=== PATIENT | female | born 1965 | race Caucasian/White ===

== ENCOUNTER → 2017-05-11 | Outpatient (CLI) | payer OTHER ==
[~2017-05-11] VITALS: Ht 160 cm; Wt 74.5 kg
[~2017-05-11] MED LIST: CHLORHEXIDINE GLUCONATE 2 % 1 PACK (2 CLOTHS) TOPICAL PRN; INSULIN HUMAN REGULAR 1,000 UNITS/10 ML VIAL SQ PRN; LACTATED RINGER'S 1000 ML IV PRN; LIDOCAINE HCL 1% PF 5 ML SYRINGE OTHER ONE; METOPROLOL TARTRATE 25 MG TAB PO PRN; NAPR250T4 PO; POVIDONE IODINE 5% (ANTISEPSIS KIT) 4 APPLICATIONS EACH NARE PRN; PROPOFOL 200 MG/20 ML AMP IV ONE; SODIUM CHLORID 0.9% 500 ML IV PRN
--- NOTE | 2017-05-11 12:47 | GIPROC ---
[facility] [address] [facility]. [facility], [address] EGD PROCEDURE REPORT EXAM DATE: 05/11/2017 PATIENT NAME: Karly Booth MR #: [id number] BIRTHDATE: 1965 ATTENDING: Micky Olea MD ORDER #: [id number] ROOM SERVICE WAITER: Violet Kidd and Abbey Mora STATUS: outpatient INDICATIONS: The patient is a 51 yr old female here for an EGD due to gastroesophageal reflux with no need for acid suppression routinely. PROCEDURE PERFORMED: EGD, diagnostic MEDICATIONS: None and Per Anesthesia. TOPICAL ANESTHETIC: none CONSENT: The patient understands the risks and benefits of the procedure and understands that these risks include, but are not limited to: sedation, allergic reaction, infection, perforation and/or bleeding. Alternative means of evaluation and treatment include, among others: physical exam, x-rays, and/or surgical intervention. The patient elects to proceed with this endoscopic procedure. medical equipment was checked for proper function. Hand hygiene and appropriate measures for infection prevention was taken. After the risks, benefits and alternatives of the procedure were thoroughly explained, Informed consent was verified, confirmed and timeout was successfully executed by the treatment team. The patient was anesthetized with topical anesthesia and the Pentax [id number] endoscope was introduced through the mouth and advanced to the . Retroflexion was performed and was normal The gastroscope was then slowly withdrawn and removed. ESOPHAGUS: The mucosa of the esophagus appeared normal. STOMACH: The mucosa of the stomach appeared normal. DUODENUM: The duodenal mucosa appeared normal. ADVERSE EVENTS: There were no complications. IMPRESSIONS: Normal exam with no evidence of reflux-induced esophageal injury. RECOMMENDATIONS: Resume prior diet/medications and the anti-reflux regimen. PATIENT CONDITION: stable DISPOSITION: Home REPEAT EXAM: as needed for new symptoms Micky Olea MD eSigned: Micky Olea MD 05/11/2017 12:47 PM cc: Kushal Coleman M.D. PATIENT NAME: Karly Booth MR#: [id number]
--- NOTE | 2017-05-11 12:53 | GIPROC ---
[facility] [address] [facility]. [facility], [address] COLONOSCOPY PROCEDURE REPORT EXAM DATE: 05/11/2017 PATIENT NAME: Karly Booth MR #: [id number] BIRTHDATE: 1965 ENDOSCOPIST: Micky Olea MD ORDER #: [id number] LIFE UNDERWRITER: Violet Kidd and Abbey Mora STATUS: outpatient INDICATIONS: The patient is a 51 yr old female here for a colonoscopy due to screening; average risk. PROCEDURE PERFORMED: Colonoscopy with polypectomy MEDICATIONS: None and Per Anesthesia. PREP QUALITY: poor ESTIMATED BLOOD LOSS: None CONSENT: The patient understands the risks and benefits of the procedure and understands that these risks include, but are not limited to: sedation, allergic reaction, infection, perforation and/or bleeding. Alternative means of evaluation and treatment include, among others: physical exam, x-rays, and/or surgical intervention. The patient elects to proceed with this endoscopic procedure. medical equipment was checked for proper function. Hand hygiene and appropriate measures for infection prevention was taken. After the risks, benefits and alternatives of the procedure were thoroughly explained, Informed consent was verified, confirmed and timeout was successfully executed by the treatment team. A digital exam was performed and revealed no abnormalities of the rectum The Pentax [id number] endoscope was introduced through the anus and advanced to the cecum, which was identified by both the appendix and ileocecal valve. The instrument was then slowly withdrawn as the colon was fully examined. COLON FINDINGS: A polypoid shaped semi-pedunculated polyp measuring 3 mm in size was found in the transverse colon. A polypectomy was performed with a cold snare. The resection was complete and the polyp tissue was completely retrieved. A smooth pedunculated polyp measuring 3 mm in size was found in the sigmoid colon. A polypectomy was performed with a cold snare. The resection was complete and the polyp tissue was completely retrieved. Retroflexion was performed and was normal The scope was then completely withdrawn from the patient and the procedure terminated. ADVERSE EVENTS: There were no complications. IMPRESSIONS: 1. A semi-pedunculated polyp was found in the transverse colon; polypectomy was performed with a cold snare 2. A pedunculated polyp was found in the sigmoid colon; polypectomy was performed with a cold snare 3. Retroflexion was performed and was normal 4. Was performed 5. Revealed no abnormalities of the rectum RECOMMENDATIONS: Await biopsy results. Biopsy results will not be ready for 7-10 days. If you don't hear from us in two weeks, call our office for results. RECALL: Repeat exam in five years based on pathology report. Micky Olea MD eSigned: Micky Olea MD 05/11/2017 12:52 PM cc: Kushal Coleman M.D.
[2017-05-11 13:20] VITALS: BP 116/79; PULSE 59; RESP 20; TEMP 97.6; O2SAT 99
--- NOTE | 2017-05-11 14:46 | EKG ---
Date Performed: 05/11/2017 Time Performed: 10:50:16 PTAGE: 51 years EKG: SINUS BRADYCARDIA BORDERLINE ECG NO PREVIOUS TRACING DOCTOR: Luke Lancaster Interpretating Date/Time 05/11/2017 14:45:45
== END ==
LOC: HOR 10:14 → EDBD 10:14
DX: Z12.11 Encounter for screening for malignant neoplasm of colon (principal); D12.3 Benign neoplasm of transverse colon; D12.5 Benign neoplasm of sigmoid colon; K21.9 Gastro-esophageal reflux disease without esophagitis; R00.1 Bradycardia, unspecified
CPT/HCPCS: 00740; 00810; 43235; 45385; 88305; 93005; J7120